=== PATIENT | male | born 1950 | race Caucasian/White ===

== ENCOUNTER → 2017-01-12 | Outpatient (CLI) | payer OTHER ==
[~2017-01-12] MED LIST: ACET-1138 PO; ASPEC81 PO; ATEN-173 PO; CYAN500T13 PO; INSDGI SC; LISI10TA PO; MAGN1CAP2 PO; MENT4GEL TOP; METF-382 PO; METFTAB PO; MULT-506 PO; NVLRPUC SC; OXYSR10 PO; RXC5 PO; SIMV40TA2 PO; TOPI25TA99 PO
[2017-01-13 06:18] LABS: ESTIMATED AVERAGE GLUCOSE 183 mg/dl; HA1C FLAG Normal (Normal)
== END | disposition home or self-care (01) ==
LOC: C.LABMFLN 13:07
PROVIDERS: ATTEND Family Medicine
DX: E78.5 Hyperlipidemia, unspecified (principal); I10 Essential (primary) hypertension; B37.2 Candidiasis of skin and nail

== ENCOUNTER → 2017-01-14 | Outpatient (CLI) | payer OTHER ==
[2017-01-14 12:50] LABS: BASO % 0.2 %; BASO ABS # 0.03 K/uL (0-0.2); COMPLETE YES; EOS % 1.7 %; HEMATOCRIT 42.5 % (42-52); IG% 0.2 %; LYMPH % 25.2 %; LYMPH ABS # 3.04 K/uL (1.2-3.4); MEAN CORPUSCULAR HEMOGLOBIN 32.7 pg (25-34); MEAN CORPUSCULAR HGB CONC 32.7 g/dl (32-36); MEAN PLATELET VOLUME 10.2 fL (7.4-10.4); MONO % 6.8 %; NEUT % 65.9 %; PLATELET COUNT 269 K/uL (130-400); RED BLOOD COUNT 4.25 M/uL (4.7-6.1); WHITE BLOOD COUNT 12.04 K/uL (4.8-10.8)
[2017-01-14 13:15] LABS: ALT/SGPT 29 U/L (12-78); AMYLASE 27 U/L (25-115); AST/SGOT 16 U/L (15-37); BLOOD UREA NITROGEN 16 mg/dl (7-18); BUN/CREATININE RATIO 14.1 (10-20); CALCIUM 9.4 mg/dl (8.5-10.1); CARBON DIOXIDE 26 mmol/L (21-32); CHLORIDE 106 mmol/L (98-107); CREATININE 1.16 mg/dl (0.60-1.40); GLUCOSE 162 mg/dl (70-99); POTASSIUM 4.2 mmol/L (3.5-5.1); SODIUM 138 mmol/L (136-145)
[2017-01-14 13:17] LABS: ALKALINE PHOSPHATASE 151 U/L (45-117)
== END | disposition home or self-care (01) ==
LOC: C.LABMFLN 10:04
PROVIDERS: ATTEND Family Medicine
DX: R10.13 Epigastric pain (principal); R10.12 Left upper quadrant pain